=== PATIENT | female | born 1945 | race Asian ===

== ENCOUNTER 2024-05-13 21:40 | Emergency (ER) | payer OTHER, MEDICAID ==
[~2024-05-13] VITALS: Ht 157.5 cm; Wt 61.7 kg
[2024-05-13 21:55] VITALS: BP_SYST 176; PULSE 76; RESP 19; TEMP 98.5; O2SAT 98
[2024-05-13 22:21] LABS: BASOPHILS % (AUTO) 0.2 % (0.0-2.0); EOSINOPHILS % (AUTO) 0.7 % (0.0-4.0); HEMOGLOBIN 11.5 g/dL (12.0-16.0); LYMPHOCYTES # (AUTO) 1.6 K/uL (1.0-5.5); LYMPHOCYTES % (AUTO) 30.4 % (20.5-51.5); MEAN CORPUSCULAR HEMOGLOBIN 33 pg (27-31); MEAN CORPUSCULAR HGB CONC 36 % (32-36); MEAN CORPUSCULAR VOLUME 93 fL (79.0-98.0); MONOCYTES # (AUTO) 0.7 K/uL (0.0-1.0); NEUTROPHILS % (AUTO) 55.7 % (40.0-70.0); PLATELET COUNT (AUTO) 199 K/uL (130-430); RED BLOOD CELL COUNT(AUTO) 3.45 MIL/uL (4.2-6.2); RED CELL DISTRIBUTION WIDTH 13.7 % (9.0-15.0); WHITE BLOOD COUNT (AUTO) 5.4 K/uL (4.8-10.8)
[2024-05-13 22:26] LABS: ANION GAP 10 (5-15); CALCIUM 8.9 mg/dL (8.4-11.0); CARBON DIOXIDE 23 mmol/L (23-29); CHLORIDE 101 mmol/L (98-107); CREATININE 0.89 mg/dL (0.55-1.30); GLUCOSE 167 mg/dL (74-106); SODIUM SERUM 134 mmol/L (136-145); UREA NITROGEN, BLOOD 14 mg/dL (8-21)
[2024-05-13 22:27] LABS: POTASSIUM 4.4 mmol/L (3.5-5.1)
[2024-05-13 22:32] LABS: BILIRUBIN,URINE NEGATIVE (NEGATIVE); BLOOD, URINE 2+ (NEGATIVE); CLARITY/URINE CLEAR (CLEAR); COLOR,URINE YELLOW (YELLOW); GLUCOSE,URINE NEGATIVE (NEGATIVE); KETONES,URINE NEGATIVE (NEGATIVE); LEUKOCYTE ESTERASE ,URINE NEGATIVE (NEGATIVE); NITRITE, URINE NEGATIVE (NEGATIVE); PROTEIN URINE 1+ (NEGATIVE); UROBILINOGEN,URINE 0.2 (0.2-1.0)
[2024-05-13 22:41] LABS: BACTERIA,URINE None Seen /HPF (None Seen); MUCUS,URINE None Seen /LPF (None Seen); WBC,URINE 0-3 /HPF (0-3)
[2024-05-14] MEDS ORDERED: ACET-2634 PO (01:05)
[2024-05-14] MEDS: KETOROLAC TROMETHAMINE 30 MG VIAL IM ONE (01:15)
[2024-05-14 01:21] VITALS: BP_SYST 134; PULSE 72; RESP 19; TEMP 98.5; O2SAT 98
== END 2024-05-14 01:21 | disposition home or self-care (01) ==
LOC: SED 21:40
DX: S29.9XXA Unspecified injury of thorax, initial encounter (principal); K57.90 Diverticulosis of intestine, part unspecified, without perforation or abscess without bleeding; K76.0 Fatty (change of) liver, not elsewhere classified; I88.0 Nonspecific mesenteric lymphadenitis; W19.XXXA Unspecified fall, initial encounter; Y93.89 Activity, other specified; Y92.89 Other specified places as the place of occurrence of the external cause; Y99.8 Other external cause status
CPT/HCPCS: 99285; 74176; 80048; 81000; 81001; 85025; 36415; 72170; 73502; 74018; 96374; 71045; 81015; J1885

== ENCOUNTER 2024-05-17 20:28 | Emergency (ER) | payer BC, MEDICAID ==
[~2024-05-17] VITALS: Ht 157.5 cm; Wt 61.7 kg
[~2024-05-17 20:28] MED LIST: ACET-2634 PO
[2024-05-17 20:35] VITALS: BP_SYST 151; PULSE 70; RESP 18; TEMP 98.4; O2SAT 99
[2024-05-17 21:43] LABS: BASOPHILS % (AUTO) 0.4 % (0.0-2.0); EOSINOPHILS % (AUTO) 0.1 % (0.0-4.0); HEMATOCRIT 32.4 % (36-48); HEMOGLOBIN 11.7 g/dL (12.0-16.0); LYMPHOCYTES # (AUTO) 1.6 K/uL (1.0-5.5); MEAN CORPUSCULAR HEMOGLOBIN 33 pg (27-31); MEAN CORPUSCULAR HGB CONC 36 % (32-36); MEAN CORPUSCULAR VOLUME 92 fL (79.0-98.0); MONOCYTES # (AUTO) 0.7 K/uL (0.0-1.0); NEUTROPHILS # (AUTO) 2.1 K/uL (1.8-7.7); NEUTROPHILS % (AUTO) 48.5 % (40.0-70.0); PLATELET COUNT (AUTO) 204 K/uL (130-430); RED BLOOD CELL COUNT(AUTO) 3.54 MIL/uL (4.2-6.2); WHITE BLOOD COUNT (AUTO) 4.4 K/uL (4.8-10.8)
[2024-05-17 21:53] LABS: ALANINE AMINOTRANSFERASE 43 U/L (12-78); ALBUMIN 3.5 g/dL (3.4-4.8); ANION GAP 11 (5-15); ASPARTATE AMINOTRANSFERASE 34 U/L (10-37); BILIRUBIN,DIRECT 0.1 mg/dL (0.0-0.3); CALCIUM 8.5 mg/dL (8.4-11.0); CARBON DIOXIDE 22 mmol/L (23-29); CHLORIDE 99 mmol/L (98-107); CREATININE 0.74 mg/dL (0.55-1.30); GLUCOSE 88 mg/dL (74-106); LIPASE 34 U/L (16-77); POTASSIUM 3.3 mmol/L (3.5-5.1); SODIUM SERUM 132 mmol/L (136-145); TOTAL BILIRUBIN 0.4 mg/dL (0.0-1.0); TOTAL PROTEIN, SERUM 7.6 g/dL (6.4-8.3); UREA NITROGEN, BLOOD 9 mg/dL (8-21)
[2024-05-17] MEDS: AZITHROMYCIN 500 MG in NS 250 ML IV ONE (23:00)
[2024-05-17] MEDS: cefTRIAXone 1 GM IVPB PREMIX 50 ML IV ONE (23:00)
[2024-05-18] MEDS ORDERED: AZITHROMYCIN 500 MG/VIAL (ZITHROMAX) IV ONE (00:42)
[2024-05-18] MEDS: MORPHINE 2 MG/ML INJ. SYRINGE IVP ONE (00:53)
[2024-05-18] MEDS: ONDANSETRON HCL 4 MG/2 ML VIAL IVP ONE (00:53)
[2024-05-18] MEDS: FAMOTIDINE PF 20 MG/2 ML VIAL IVP ONE (00:53)
[2024-05-18 03:26] VITALS: BP_SYST 151; PULSE 70; RESP 18; TEMP 98.4; O2SAT 99
== END 2024-05-18 03:21 | disposition short-term general hospital (02) ==
LOC: SED 20:28
DX: R10.13 Epigastric pain (principal); R10.33 Periumbilical pain; K65.4 Sclerosing mesenteritis; J18.9 Pneumonia, unspecified organism; I10 Essential (primary) hypertension; Z20.822 Contact with and (suspected) exposure to COVID-19; Z79.899 Other long term (current) drug therapy
CPT/HCPCS: 99285; 74176; 87426; 80076; 80048; 83690; 85025; 87040; 36415; 96365; 96375; 96368; J0456; J0696; J3490; J2405; J2270

== ENCOUNTER 2024-05-23 18:19 | Inpatient (IN) | payer BC, MEDICAID ==
[~2024-05-23] VITALS: Ht 157.5 cm; Wt 61.7 kg
[2024-05-23 19:28] VITALS: BP_SYST 160; PULSE 86; RESP 16; TEMP 98.2; O2SAT 100
[2024-05-23 19:52] LABS: BASOPHILS % (AUTO) 0.5 % (0.0-2.0); EOSINOPHILS % (AUTO) 0.8 % (0.0-4.0); HEMATOCRIT 33.5 % (36-48); LYMPHOCYTES # (AUTO) 1.7 K/uL (1.0-5.5); LYMPHOCYTES % (AUTO) 30.9 % (20.5-51.5); MEAN CORPUSCULAR HEMOGLOBIN 33 pg (27-31); MEAN CORPUSCULAR HGB CONC 36 % (32-36); MEAN CORPUSCULAR VOLUME 92 fL (79.0-98.0); MONOCYTES # (AUTO) 0.6 K/uL (0.0-1.0); NEUTROPHILS % (AUTO) 55.8 % (40.0-70.0); PLATELET COUNT (AUTO) 221 K/uL (130-430); RED BLOOD CELL COUNT(AUTO) 3.64 MIL/uL (4.2-6.2); RED CELL DISTRIBUTION WIDTH 14.2 % (9.0-15.0); WHITE BLOOD COUNT (AUTO) 5.4 K/uL (4.8-10.8)
[2024-05-23 20:05] LABS: ALANINE AMINOTRANSFERASE 73 U/L (12-78); ALBUMIN 3.4 g/dL (3.4-4.8); ANION GAP 10 (5-15); ASPARTATE AMINOTRANSFERASE 53 U/L (10-37); CALCIUM 9.3 mg/dL (8.4-11.0); CARBON DIOXIDE 23 mmol/L (23-29); CHLORIDE 96 mmol/L (98-107); CREATININE 0.85 mg/dL (0.55-1.30); GLUCOSE 96 mg/dL (74-106); POTASSIUM 3.4 mmol/L (3.5-5.1); SODIUM SERUM 129 mmol/L (136-145); TOTAL BILIRUBIN 0.6 mg/dL (0.0-1.0); TOTAL PROTEIN, SERUM 7.4 g/dL (6.4-8.3); UREA NITROGEN, BLOOD 7 mg/dL (8-21)
[2024-05-23 20:06] LABS: BILIRUBIN,DIRECT 0.2 mg/dL (0.0-0.3); LIPASE 35 U/L (16-77)
[2024-05-23] MEDS ORDERED: PANTOPRAZOLE SODIUM 40 MG/VIAL (PROTONIX) ONE (21:40)
[2024-05-23] MEDS ORDERED: KETOROLAC TROMETHAMINE 30 MG VIAL ONE (21:40)
[2024-05-23] MEDS ORDERED: ONDANSETRON HCL 4 MG/2 ML VIAL ONE (21:41)
[2024-05-23] MEDS: NACL 0.9% 1,000 ML IV ONE (21:51)
[2024-05-23] MEDS: PANTOPRAZOLE SODIUM 40 MG/VIAL (PROTONIX) IVP ONE (21:51)
[2024-05-23] MEDS: KETOROLAC TROMETHAMINE 30 MG VIAL IVP ONE (21:52)
[2024-05-23] MEDS: ONDANSETRON HCL 4 MG/2 ML VIAL IVP ONE (21:55)
[2024-05-24 00:53] LABS: BILIRUBIN,URINE NEGATIVE (NEGATIVE); COLOR,URINE YELLOW (YELLOW); GLUCOSE,URINE NEGATIVE (NEGATIVE); KETONES,URINE NEGATIVE (NEGATIVE); LEUKOCYTE ESTERASE ,URINE NEGATIVE (NEGATIVE); NITRITE, URINE NEGATIVE (NEGATIVE); PH,URINE 7.5 (5.0-8.0); PROTEIN URINE 1+ (NEGATIVE); UROBILINOGEN,URINE 0.2 (0.2-1.0)
[2024-05-24 01:03] LABS: BLOOD, URINE 1+ (NEGATIVE); CLARITY/URINE HAZY (CLEAR)
[2024-05-24 01:05] LABS: BACTERIA,URINE None Seen /HPF (None Seen); WBC,URINE 0-3 /HPF (0-3)
[2024-05-24] MEDS: IBUPROFEN 600 MG TABLET PO ONE (02:28)
[2024-05-24] MEDS: cefTRIAXone 1 GM IVPB PREMIX 50 ML IV ONE (06:15)
[2024-05-24] MEDS: NACL 0.9% 1,000 ML IV ONE (06:15)
[2024-05-24] MEDS ORDERED: ONDANSETRON HCL 4 MG/2 ML VIAL IVP PRN (10:45)
[2024-05-24] MEDS ORDERED: LORazepam 2 MG/ML VIAL IVP PRN (10:45)
[2024-05-24] MEDS ORDERED: NALOXONE HCL 0.4 MG/ML AMP (NARCAN) IVP PRN (10:45)
[2024-05-24] MEDS ORDERED: MORPHINE 4 MG INJ. 4 MG/ML VIAL IVP PRN (10:45)
[2024-05-24 11:15] VITALS: BP_SYST 133; PULSE 58; RESP 18; TEMP 98.4; O2SAT 98
[2024-05-24 11:25] LABS: BASOPHILS % (AUTO) 0.4 % (0.0-2.0); HEMATOCRIT 31.3 % (36-48); HEMOGLOBIN 10.7 g/dL (12.0-16.0); LYMPHOCYTES # (AUTO) 1.6 K/uL (1.0-5.5); LYMPHOCYTES % (AUTO) 34.1 % (20.5-51.5); MEAN CORPUSCULAR HEMOGLOBIN 32 pg (27-31); MEAN CORPUSCULAR HGB CONC 34 % (32-36); MEAN CORPUSCULAR VOLUME 95 fL (79.0-98.0); MONOCYTES # (AUTO) 0.8 K/uL (0.0-1.0); MONOCYTES % (AUTO) 16.8 % (1.7-9.3); NEUTROPHILS # (AUTO) 2.3 K/uL (1.8-7.7); NEUTROPHILS % (AUTO) 47.7 % (40.0-70.0); PLATELET COUNT (AUTO) 195 K/uL (130-430); RED BLOOD CELL COUNT(AUTO) 3.31 MIL/uL (4.2-6.2); RED CELL DISTRIBUTION WIDTH 13.9 % (9.0-15.0); WHITE BLOOD COUNT (AUTO) 4.8 K/uL (4.8-10.8)
[2024-05-24 11:39] LABS: ANION GAP 7 (5-15); CALCIUM 8.1 mg/dL (8.4-11.0); CARBON DIOXIDE 23 mmol/L (23-29); CHLORIDE 103 mmol/L (98-107); CREATININE 0.76 mg/dL (0.55-1.30); GLUCOSE 96 mg/dL (74-106); POTASSIUM 3.7 mmol/L (3.5-5.1); SODIUM SERUM 133 mmol/L (136-145); UREA NITROGEN, BLOOD 7 mg/dL (8-21)
[2024-05-24 11:52] VITALS: BP_SYST 133; PULSE 58; RESP 18; TEMP 98.4; O2SAT 96
[2024-05-24] MEDS: cefTRIAXone 1 GM IVPB PREMIX 50 ML IV SCH (13:00)
[2024-05-24] MEDS: D5/0.45 NS 1,000 ML IV ONE (13:00)
[2024-05-24 13:53] VITALS: BP_SYST 133; PULSE 55; RESP 16; TEMP 98.5; O2SAT 100
[2024-05-24] MEDS ORDERED: FOLI-43 PO ×2 (15:37→19:00)
[2024-05-24] MEDS ORDERED: BETH5TAB10 PO (15:37)
[2024-05-24] MEDS ORDERED: ASPI-1393 PO (15:37)
[2024-05-24 16:00] VITALS: BP_SYST 140; PULSE 53; RESP 14; TEMP 98.9; O2SAT 97
[2024-05-24] MEDS ORDERED: SIME80TA15 PO (19:00)
[2024-05-24] MEDS ORDERED: LINA145C PO (19:00)
[2024-05-24] MEDS ORDERED: LEVO25TA7 PO (19:00)
[2024-05-24] MEDS ORDERED: OMEP20CA15 PO (19:00)
[2024-05-24] MEDS ORDERED: LOSA-413 PO (19:00)
[2024-05-24] MEDS ORDERED: PYRI50CA PO (19:00)
[2024-05-24] MEDS: MORPHINE 2 MG/ML INJ. SYRINGE IVP PRN (20:02)
[2024-05-24 20:45] VITALS: BP_SYST 135; PULSE 64; RESP 16; TEMP 97.2; O2SAT 96
[2024-05-25 00:16] VITALS: BP_SYST 140; PULSE 70; RESP 18; TEMP 96.8; O2SAT 97
[2024-05-25 04:09] VITALS: RESP 16; O2SAT 97
[2024-05-25 07:20] LABS: BASOPHILS % (AUTO) 0.8 % (0.0-2.0); EOSINOPHILS # (AUTO) 0.1 K/uL (0.0-0.4); EOSINOPHILS % (AUTO) 2.6 % (0.0-4.0); HEMATOCRIT 33.1 % (36-48); HEMOGLOBIN 11.3 g/dL (12.0-16.0); LYMPHOCYTES # (AUTO) 1.4 K/uL (1.0-5.5); LYMPHOCYTES % (AUTO) 29.6 % (20.5-51.5); MEAN CORPUSCULAR HEMOGLOBIN 32 pg (27-31); MEAN CORPUSCULAR HGB CONC 34 % (32-36); MEAN CORPUSCULAR VOLUME 94 fL (79.0-98.0); MONOCYTES # (AUTO) 0.7 K/uL (0.0-1.0); NEUTROPHILS # (AUTO) 2.5 K/uL (1.8-7.7); PLATELET COUNT (AUTO) 193 K/uL (130-430); RED BLOOD CELL COUNT(AUTO) 3.51 MIL/uL (4.2-6.2); RED CELL DISTRIBUTION WIDTH 13.9 % (9.0-15.0); WHITE BLOOD COUNT (AUTO) 4.8 K/uL (4.8-10.8)
[2024-05-25 07:40] LABS: ALANINE AMINOTRANSFERASE 71 U/L (12-78); ANION GAP 10 (5-15); ASPARTATE AMINOTRANSFERASE 47 U/L (10-37); CALCIUM 8.2 mg/dL (8.4-11.0); CARBON DIOXIDE 23 mmol/L (23-29); CHLORIDE 106 mmol/L (98-107); CREATININE 0.75 mg/dL (0.55-1.30); GLUCOSE 90 mg/dL (74-106); POTASSIUM 3.5 mmol/L (3.5-5.1); SODIUM SERUM 139 mmol/L (136-145); TOTAL BILIRUBIN 0.4 mg/dL (0.0-1.0); TOTAL PROTEIN, SERUM 6.5 g/dL (6.4-8.3); UREA NITROGEN, BLOOD 7 mg/dL (8-21)
[2024-05-25 08:23] VITALS: BP_SYST 158; PULSE 57; RESP 18; TEMP 97.9; O2SAT 98
[2024-05-25 12:49] VITALS: BP_SYST 148; PULSE 60; RESP 17; TEMP 97.2; O2SAT 97
[2024-05-25 17:08] VITALS: BP_SYST 150; PULSE 59; RESP 18; TEMP 97.8; O2SAT 97
[2024-05-25] MEDS: D5/0.45 NS 1,000 ML IV SCH (19:04)
[2024-05-25 19:56] VITALS: BP_SYST 151; PULSE 66; RESP 20; TEMP 97.8; O2SAT 97
[2024-05-26 00:02] VITALS: BP_SYST 134; PULSE 65; RESP 18; TEMP 97.5; O2SAT 97
[2024-05-26 06:53] LABS: BASOPHILS % (AUTO) 0.5 % (0.0-2.0); EOSINOPHILS # (AUTO) 0.1 K/uL (0.0-0.4); HEMATOCRIT 32.1 % (36-48); HEMOGLOBIN 11.2 g/dL (12.0-16.0); LYMPHOCYTES # (AUTO) 1.3 K/uL (1.0-5.5); LYMPHOCYTES % (AUTO) 22.5 % (20.5-51.5); MEAN CORPUSCULAR HEMOGLOBIN 33 pg (27-31); MEAN CORPUSCULAR HGB CONC 35 % (32-36); MEAN CORPUSCULAR VOLUME 93 fL (79.0-98.0); MONOCYTES # (AUTO) 0.8 K/uL (0.0-1.0); MONOCYTES % (AUTO) 14.4 % (1.7-9.3); NEUTROPHILS # (AUTO) 3.5 K/uL (1.8-7.7); NEUTROPHILS % (AUTO) 60.6 % (40.0-70.0); PLATELET COUNT (AUTO) 203 K/uL (130-430); RED BLOOD CELL COUNT(AUTO) 3.44 MIL/uL (4.2-6.2); RED CELL DISTRIBUTION WIDTH 13.9 % (9.0-15.0); WHITE BLOOD COUNT (AUTO) 5.7 K/uL (4.8-10.8)
[2024-05-26 07:21] LABS: ERYTHROCYTE SEDIMENTATION RATE 21 MM/HR (0-20)
[2024-05-26 07:22] LABS: ALANINE AMINOTRANSFERASE 56 U/L (12-78); ALBUMIN 2.9 g/dL (3.4-4.8); ANION GAP 9 (5-15); ASPARTATE AMINOTRANSFERASE 33 U/L (10-37); CALCIUM 8.1 mg/dL (8.4-11.0); CARBON DIOXIDE 24 mmol/L (23-29); CHLORIDE 105 mmol/L (98-107); CREATININE 0.68 mg/dL (0.55-1.30); GLUCOSE 111 mg/dL (74-106); LIPASE 29 U/L (16-77); POTASSIUM 3.3 mmol/L (3.5-5.1); SODIUM SERUM 138 mmol/L (136-145); TOTAL BILIRUBIN 0.5 mg/dL (0.0-1.0); TOTAL PROTEIN, SERUM 6.5 g/dL (6.4-8.3); UREA NITROGEN, BLOOD 4 mg/dL (8-21)
[2024-05-26 09:50] VITALS: O2SAT 99
[2024-05-26] MEDS: POTASSIUM CHLORIDE 20 MEQ/PKT PACKET PO ONE (10:07)
[2024-05-26 11:01] VITALS: BP_SYST 166; PULSE 73; RESP 16; TEMP 97.5; O2SAT 98
[2024-05-26] MEDS: PANTOPRAZOLE SODIUM 40 MG/VIAL (PROTONIX) IVP SCH (11:05)
[2024-05-26 16:23] VITALS: BP_SYST 156; PULSE 70; RESP 16; TEMP 97.6; O2SAT 98
[2024-05-26 20:00] VITALS: BP_SYST 175; PULSE 81; RESP 18; TEMP 98.4; O2SAT 98
[2024-05-26] MEDS: POLYETHYLENE GLYCOL 3350, 17 GM/ POWD.PACK PO SCH (22:15)
[2024-05-27 06:50] LABS: BASOPHILS % (AUTO) 0.4 % (0.0-2.0); EOSINOPHILS # (AUTO) 0.1 K/uL (0.0-0.4); EOSINOPHILS % (AUTO) 0.8 % (0.0-4.0); HEMATOCRIT 32.2 % (36-48); HEMOGLOBIN 11.4 g/dL (12.0-16.0); LYMPHOCYTES # (AUTO) 1.2 K/uL (1.0-5.5); LYMPHOCYTES % (AUTO) 17.4 % (20.5-51.5); MEAN CORPUSCULAR HEMOGLOBIN 33 pg (27-31); MEAN CORPUSCULAR HGB CONC 35 % (32-36); MEAN CORPUSCULAR VOLUME 93 fL (79.0-98.0); MONOCYTES # (AUTO) 0.8 K/uL (0.0-1.0); MONOCYTES % (AUTO) 11.9 % (1.7-9.3); NEUTROPHILS # (AUTO) 4.8 K/uL (1.8-7.7); NEUTROPHILS % (AUTO) 69.5 % (40.0-70.0); PLATELET COUNT (AUTO) 179 K/uL (130-430); RED BLOOD CELL COUNT(AUTO) 3.46 MIL/uL (4.2-6.2); RED CELL DISTRIBUTION WIDTH 14.3 % (9.0-15.0); WHITE BLOOD COUNT (AUTO) 6.9 K/uL (4.8-10.8)
[2024-05-27 07:47] LABS: ERYTHROCYTE SEDIMENTATION RATE 32 MM/HR (0-20)
[2024-05-27 07:48] LABS: ANION GAP 6 (5-15); CALCIUM 8.3 mg/dL (8.4-11.0); CARBON DIOXIDE 27 mmol/L (23-29); CHLORIDE 102 mmol/L (98-107); CREATININE 0.74 mg/dL (0.55-1.30); GLUCOSE 116 mg/dL (74-106); POTASSIUM 3.7 mmol/L (3.5-5.1); SODIUM SERUM 135 mmol/L (136-145); UREA NITROGEN, BLOOD 4 mg/dL (8-21)
[2024-05-27 08:05] VITALS: BP_SYST 145; PULSE 74; RESP 16; TEMP 99.2; O2SAT 99
[2024-05-27] MEDS ORDERED: POLYETHYLENE GLYCOL 3350, 17 GM/ POWD.PACK PO SCH (09:00)
[2024-05-27] MEDS: LOSARTAN POTASSIUM 50 MG TABLET (COZAAR) PO SCH (09:33)
[2024-05-27 10:00] VITALS: O2SAT 99
[2024-05-27 12:24] VITALS: BP_SYST 142; PULSE 72; RESP 16; TEMP 98.4; O2SAT 99
[2024-05-27] MEDS ORDERED: DIATR MEGLU/DIATRIZ SOD 30 ML SOLUTION PO ONE (13:45)
[2024-05-27 16:00] VITALS: BP_SYST 168; PULSE 80; RESP 18; TEMP 97.6; O2SAT 98
[2024-05-27 20:00] VITALS: BP_SYST 147; PULSE 79; RESP 18; TEMP 98.4; O2SAT 99
[2024-05-27 22:00] VITALS: O2SAT 99
[2024-05-28] MEDS: SIMETHICONE 40 MG/0.6 ML ML ONE (07:57)
[2024-05-28] MEDS: BENZOCAINE 20% 0.5mL UD SPRAY MM ONE (07:57)
[2024-05-28] MEDS: fentaNYL CITRATE/PF 100 MCG/2 ML AMP ONE (07:57)
[2024-05-28] MEDS: MIDAZOLAM HCL 5 MG/5 ML VIAL ONE (07:58)
[2024-05-28 08:01] VITALS: BP_SYST 152; PULSE 70; RESP 15; TEMP 97.9; O2SAT 99
[2024-05-28 08:58] LABS: BASOPHILS % (AUTO) 0.3 % (0.0-2.0); EOSINOPHILS % (AUTO) 0.8 % (0.0-4.0); HEMATOCRIT 30.1 % (36-48); HEMOGLOBIN 10.5 g/dL (12.0-16.0); LYMPHOCYTES # (AUTO) 1.2 K/uL (1.0-5.5); MEAN CORPUSCULAR HEMOGLOBIN 33 pg (27-31); MEAN CORPUSCULAR HGB CONC 35 % (32-36); MEAN CORPUSCULAR VOLUME 93 fL (79.0-98.0); MONOCYTES # (AUTO) 0.9 K/uL (0.0-1.0); MONOCYTES % (AUTO) 16.3 % (1.7-9.3); NEUTROPHILS # (AUTO) 3.2 K/uL (1.8-7.7); NEUTROPHILS % (AUTO) 60.6 % (40.0-70.0); PLATELET COUNT (AUTO) 153 K/uL (130-430); RED BLOOD CELL COUNT(AUTO) 3.22 MIL/uL (4.2-6.2); RED CELL DISTRIBUTION WIDTH 14.1 % (9.0-15.0); WHITE BLOOD COUNT (AUTO) 5.3 K/uL (4.8-10.8)
[2024-05-28 09:17] LABS: ERYTHROCYTE SEDIMENTATION RATE 36 MM/HR (0-20)
[2024-05-28 09:30] VITALS: O2SAT 99
[2024-05-28 09:34] LABS: ALANINE AMINOTRANSFERASE 38 U/L (12-78); ALBUMIN 2.8 g/dL (3.4-4.8); ANION GAP 6 (5-15); ASPARTATE AMINOTRANSFERASE 24 U/L (10-37); CALCIUM 8.1 mg/dL (8.4-11.0); CARBON DIOXIDE 27 mmol/L (23-29); CHLORIDE 104 mmol/L (98-107); CREATININE 0.73 mg/dL (0.55-1.30); GLUCOSE 121 mg/dL (74-106); POTASSIUM 3.5 mmol/L (3.5-5.1); SODIUM SERUM 137 mmol/L (136-145); TOTAL BILIRUBIN 0.5 mg/dL (0.0-1.0); TOTAL PROTEIN, SERUM 6.5 g/dL (6.4-8.3); UREA NITROGEN, BLOOD 3 mg/dL (8-21)
[2024-05-28] MEDS ORDERED: POLY17PO4 PO (10:57)
[2024-05-28] MEDS ORDERED: LEVO-62 PO (10:57)
[2024-05-28 12:36] VITALS: BP_SYST 158; PULSE 74; RESP 15; TEMP 97.7; O2SAT 97
[2024-05-28 14:21] VITALS: BP_SYST 158; PULSE 74; RESP 15; TEMP 97.7; O2SAT 97
[2024-05-28 16:33] VITALS: BP_SYST 149; PULSE 64; RESP 15; TEMP 97.5; O2SAT 97
== END 2024-05-28 17:10 | disposition home or self-care (01) | DRG 383 ==
LOC: SED 18:19 → SMU 05-24 03:48
PROVIDERS: ADMIT Preventive Medicine Preventive Medicine/Occupational Environmental Medicine; ATTEND Preventive Medicine Preventive Medicine/Occupational Environmental Medicine
PROC: 0DB68ZX Excision of Stomach, Via Natural or Artificial Opening Endoscopic, Diagnostic (ICD-10-PCS; principal; 2024-05-28 11:00)
DX: K27.9 Peptic ulcer, site unspecified, unspecified as acute or chronic, without hemorrhage or perforation (principal); J18.9 Pneumonia, unspecified organism; E87.1 Hypo-osmolality and hyponatremia; K59.00 Constipation, unspecified; Z20.822 Contact with and (suspected) exposure to COVID-19; D64.9 Anemia, unspecified; K29.70 Gastritis, unspecified, without bleeding; E83.51 Hypocalcemia; E87.6 Hypokalemia; I10 Essential (primary) hypertension; E83.52 Hypercalcemia; Z79.899 Other long term (current) drug therapy; Z79.82 Long term (current) use of aspirin
CPT/HCPCS: 36415; 43239; 71045; 76700; 80048; 80053; 80076; 81000; 81001; 81015; 83605; 83690; 85025; 85651; 87040; 88305; 88312; 88313; 99285; J0696; J1885; J2250; J2270; J2405; J2470; J3010; Q9964; Q9967